=== PATIENT | female | born 1940 | race Caucasian/White ===

== ENCOUNTER 2018-04-21 11:05 | Observation (INO) ==
--- NOTE | 2018-04-21 11:18 | History & Physical Bridge Note ---
Date of Service April 21, 2018 History & Physical Bridge Note I have examined the patient, reviewed the History & Physical and in the interval since the performance of the History & Physical I have noted the following changes of clinical significance: pt was admitted to [facility] 2 days ago due to Acute Disastolic HF from AF with RVR; she has been successfully diuresed. She remains in AF with RVR. She was transferred today for the already scheduled BiV ppm and AVN ablation. Procedure and potential risks discussed with the patient's daughter since the patient has underlying dementia. Consents obtained from the patient's daughter
--- NOTE | 2018-04-21 11:19 | Pre Anesthesia Assessment ---
Date of Service April 21, 2018 Pre Sedation Assessment Cardiovascular + tachycardic Respiratory + respiratory effort normal Pre-Sedation Airway Assessment Smoking Status: Never smoker Hx Sleep Apnea: No Thyromental Distance: < 3.5 Finger Breadths Mallampati Class: II ASA: ASA3 Procedure Planning Contraindications for Sedation: none Current Medications Reviewed: Yes Notes The planned sedation has been discussed with the patient. Informed Consent was obtained. I have identified the patient, determined the appropriateness of sedation and have assessed the patient immediately prior to the procedure. All medicine(s) and interventions are by my order.
[2018-04-21] MEDS ORDERED: BACITRACIN INJ 50,000 UNIT VIAL ONE (11:43)
[2018-04-21] MEDS ORDERED: LIDOCAINE HCL 1% 20 ML VIAL ONE (11:43)
[2018-04-21] MEDS ORDERED: BUPIVACAINE 0.5 % 5 MG/1 ML PF 10ML VIAL ONE (11:43)
[2018-04-21] MEDS ORDERED: fentaNYL citrate 100 MCG/2 ML VIAL ONE ×3 (12:27→15:50)
[2018-04-21] MEDS ORDERED: MIDAZOLAM HCL 5 MG/ML 1 ML VIAL ONE ×2 (12:27→14:39)
[2018-04-21] MEDS ORDERED: methylPREDNISolone 125 MG/2 ML VIAL ONE (12:28)
[2018-04-21] MEDS ORDERED: WATER, STERILE FOR INJ 10 ML VIAL ONE (12:28)
[2018-04-21] MEDS ORDERED: CEFAZOLIN 250 MG/ML 1 GM VIAL ONE (12:28)
[2018-04-21] MEDS ORDERED: raNITIdine HCl 25 MG/ML VIAL ONE (12:28)
[2018-04-21] MEDS ORDERED: DiphenhydrAMINE HCL 50 MG/ML VIAL ONE (12:28)
[2018-04-21] MEDS ORDERED: ACETAMINOPHEN 325 MG TAB PO PRN (16:48)
--- NOTE | 2018-04-21 16:54 | Operative Report ---
Post Operative Report Pre & Post Diagnosis AF with RVR, CHF Operation Date: 04/21/18 12:00 <No data on this case meets the specified criteria> Procedure Operation Date: 04/21/18 12:00 Actual Procedures p Pacer with A/V Leads (Dual)(Left) - Leni Epstein DO s Lead LV (No Priopr Implant)(Not Applicable) - Leni Epstein DO p AV Node Ablation(Not Applicable) - Leni Epstein DO Surgeon Leni Epstein DO Barrel Inspector none Estimated Blood Loss 25 Findings Consistent with Post-Op Diagnosis Specimens none Description of Procedure see official report I attest to the content of the Intraoperative Record and any orders documented therein. Any exceptions are noted below.
--- NOTE | 2018-04-21 16:54 | Post Anesthesia Assessment ---
Date of Service April 21, 2018 Post Sedation Assessment Vital Signs Temp Pulse Resp BP Pulse Ox 04/21/18 11:17 36.6 C 78 16 103/68 99 Recovery Score Activity: Moves 4 extremities Respiration: Deep Breath/Cough Circulation: +/-20% PreAnes Value Consciousness: Fully Awake Oxygen Saturation: > 92% On Room Air Discharge Sedation Level of Care: Fast Track Phase II Post Sedation Plan On clinical assessment, the patient appears to have tolerated the sedation without complications. Patient is recovering as anticipated. Patient will continue to be monitored by nursing and may be discharged when sedation discharge criteria are met per below protocol. Upon Completions of procedure and additional 15 minutes continue every 5 minute vital signs and the P.A.R. score; then discharge to a Phase I or Fast Track to Phase II per the following guidelines: * Discharge Patient to appropriate Phase II area if PAR is 8 or greater or return to pre- procedure baseline. The post - procedure orders will be as directed. * If PAR score is less than 8 or not return to pre-procedure baseline then patient will follow Phase I monitoring till PAR is reached for Phase II. The Phase I may be done in procedure room or may call to secure a Phase I area. * If naloxone or flumazenil are used for reversal, hold in Phase I for continued monitoring from when last reversal dose was given for a minimum of 60 minutes or longer pending the nurse and/or physician discretion of patient condition before discharge to Phase II. Please call the Sedation Physician to re-evaluate and complete post-note for discharge to Phase II area. Do NOT discharge from procedure sedation or Phase 1 until post- sedation evaluation note is complete by procedure /sedation MD Sedation Discharge Instructions to be given to the patient at discharge to home.
--- NOTE | 2018-04-21 16:58 | Discharge Summary ---
Date of Service April 21, 2018 Admission HPI Pt admitted due to recurrent HF from AF with RVR despite high dose AVN blockers- to have an elective BiV ppm followed by AVN ablation Admission Exam Per Admitting Provider aaox3, NAD NC/AT, EOMI Supple No JVD irregular/irregular RVR S1/S2, No murmur CTA b/l no w/r/r soft nt/nd no LE edema b/l skin intact no focal deficits Principal Diagnosis Principal Diagnosis AF with RVR s/p BiV PPM and AVN ablation Discharge Exam aaox3, NAD NC/AT, EOMI Supple No JVD Nrl S1/S2, No murmur CTA b/l no w/r/r soft nt/nd no LE edema b/l skin intact no focal deficits left pectoral incision intact, no hematoma mild ecchymosis Discharge Data Allergies Allergy/AdvReac Type Severity Reaction Status Date / Time Iodine and Iodide Containing AdvReac Unknown Verified 04/21/18 11:31 Produc Procedures Performed Operation Date: 04/21/18 12:00 Actual Procedures p Pacer with A/V Leads (Dual)(Left) - Leni Epstein DO s Lead LV (No Priopr Implant)(Not Applicable) - Leni Epstein DO p AV Node Ablation(Not Applicable) - Leni Epstein DO Ordered Studies 04/21/18 07:45 EP Lab Images for PACS ONCE Hospital Course (1) Atrial fibrillation with rapid ventricular response: (2) Chronic combined systolic and diastolic congestive heart failure, NYHA class 3: (3) NICM (nonischemic cardiomyopathy): Total Time Total Time Spent Total Time Spent (In Minutes): 30 Total Time Includes: Examination of the Patient, Discharge Planning, Medication Reconciliation and Other Discharge Plan Discharge Items Patient Disposition: Home - Self-Care Reason For Visit: Atrial Fibrillation Discharge Diagnosis: af with rvr Condition: Good Discharge Goals: Improve function Activity: As commented below Activity Comment: do not lift the left elbow over the left shoulder for 1 month Lifting: No more than 10 pounds Lifting Comment: do not lift more than 10 pounds with the left arm for 2 weeks Bathing Comment: can shower thursday04/23/2018 Non-emergency contact: Legal Research Analyst Call non-emergency contact if: you have any medication questions Follow-up/Referrals: PCP,NO [Primary Care Provider] - Diet: Low Sodium (2gm) Addtl Provider Instructions: you should have a device and wound check in [place] next week and a f/u with either Dr. Epstein or Dav Blackburn in 1 month if you notice any swelling at the incision/pacemaker site call my office immediately Prescriptions: Continued multivitamin Tablet 1 tab PO DAILY RF: 0 furosemide [Lasix] 40 mg Tablet 40 mg PO DAILY RF: 0 alendronate [Fosamax] 70 mg Tablet 1 tab PO WK RF: 0 methimazole [Tapazole] 10 mg Tablet 10 mg PO DAILY RF: 0 loratadine [Claritin] 10 mg Tablet 10 mg PO DAILY RF: 0 Prilosec OTC 20 mg Tablet,Delayed Release (Dr/Ec) 20 mg PO BID RF: 0 Eliquis 5 mg Tablet 5 mg PO BID RF: 0 Discontinued metoprolol tartrate [Lopressor] 100 mg Tablet 100 mg PO BID RF: 0 digoxin 125 mcg Tablet 1 tab PO DAILY RF: 0 metoprolol tartrate 25 mg 1 tab PO BID RF: 0 Stand-Alone Forms: [facility] Discharge Orders: Discharge Order (Routine); Ordered 04/22/18 Ordered By: Leni Epstein Admission Data Admit Date/Time: 04/21/18 15:56 Attending Provider: Leni Epstein Admit Provider: Leni Epstein Primary Care Provider: HUSSAIN OHARA Service: Surgical Services
[2018-04-21] MEDS: ACETAMINOPHEN W/CODEINE #3 1 TAB PO PRN (17:58)
[2018-04-21 18:26] LABS: Hematocrit (blood only) 44.8 % (37-47); Hemoglobin 14.3 g/dL (12.0-16.0); Mean Corpuscular Volume 83.4 fL (80-100); Mean Platelet Volume 10.9 fL (7.4-10.4); Platelet Count 202 K/uL (130-400); RDW Coefficient of Variation 17.8 % (11.5-14.5); RDW Standard Deviation 54.7 fL (36.4-46.3); Red Blood Count 5.37 M/uL (4.2-5.4); White Blood Count 12.63 K/uL (4.8-10.8)
[2018-04-21 18:27] LABS: Mean Corpuscular Hgb Conc 31.9 g/dL (32-36)
[2018-04-21 18:42] LABS: Albumin Level 3.1 gm/dl (3.4-5.0); Bilirubin Direct 0.2 mg/dl (0-0.2); Creatinine Clr Calc Pharmacy 49.2 ml/min; Est GFR (Non-African American) 64.7
[2018-04-21 18:45] LABS: Bilirubin,Total 0.7 mg/dl (0.2-1)
[2018-04-21] MEDS: PANTOprazole 40 MG TAB PO SCH (21:49)
[2018-04-21] MEDS: APIXABAN 5 MG TABLET PO SCH (21:49)
[2018-04-22] MEDS: ACETAMINOPHEN W/CODEINE #3 1 TAB PO PRN (02:12)
--- NOTE | 2018-04-22 07:04 | XRay Report ---
XR chest 2V routine CLINICAL HISTORY: post implant COMPARISON STUDY: Chest radiograph July 28, 2008. FINDINGS: Interval placement of a left subclavian biventricular pacer is noted. Lead tips project ove r the right atrial appendage, right ventricle as well as a third lead which likely extends through th e coronary sinus. There is no pneumothorax. A moderate to large left pleural effusion is noted. There is a trace right pleural effusion. Left basilar opacity is noted. There is cardiomegaly without evid ence for pulmonary edema. Old right rib fracture is incidentally noted. IMPRESSION: 1. No pneumothorax following placement of a left subclavian biventricular pacer. 2. Moderate to large left pleural effusion with left basilar opacity. Trace right pleural effusion. 3. Cardiomegaly without evidence for pulmonary edema. Electronically signed by: Nito Zamora M.D. 04/22/2018 7:02 AM
[2018-04-22] MEDS: APIXABAN 5 MG TABLET PO SCH (08:39)
[2018-04-22] MEDS: PANTOprazole 40 MG TAB PO SCH (08:39)
[2018-04-22] MEDS ORDERED: INFLUENZA ADMINISTRATION CHARGE ONE (08:45)
[2018-04-22] MEDS ORDERED: PNEUMOCOCCAL ADMINISTRATION CHARGE ONE (08:45)
[2018-04-22] MEDS ORDERED: PNEUMOCOCCAL POLYSACCHARIDES 25 MCG/0.5 ML VIAL/SYR IM ONE (08:45)
[2018-04-22] MEDS ORDERED: INFLUENZA VACCINE HIGH DOSE 65+ 0.5 ML SYR IM ONE (08:45)
[2018-04-22] MEDS ORDERED: FUROSEMIDE 40 MG TAB PO SCH (09:00)
[2018-04-22] MEDS ORDERED: MULTIVITAMIN TAB PO SCH (09:00)
[2018-04-22] MEDS ORDERED: methIMAzole 5 MG TABLET PO SCH (09:00)
[2018-04-22] MEDS ORDERED: LORATADINE 10 MG TAB PO SCH (09:00)
--- NOTE | 2018-04-23 10:11 | Operative Report ---
Post Operative Report Pre & Post Diagnosis Operation Date: 04/21/18 12:00 <No data on this case meets the specified criteria> Procedure Operation Date: 04/21/18 12:00 Actual Procedures p Pacer with A/V Leads (Dual)(Left) - Leni Epstein DO s Lead LV (No Priopr Implant)(Not Applicable) - Leni Epstein, p AV Node Ablation(Not Applicable) - Leni Epstein DO s Venogram, Unilateral - Leni Epstein DO s Catheter Mapping - Leni Epstein DO Surgeon Leni Epstein, Tub Wash Operator none Estimated Blood Loss 25 I attest to the content of the Intraoperative Record and any orders documented therein. Any exceptions are noted below.
--- NOTE | 2018-04-23 22:51 | Operative Report ---
DATE OF OPERATION: 04/21/2018 PREOPERATIVE DIAGNOSES: [id number]-tu-[id number] diastolic and systolic heart failure [place] Heart Association class III, cardiomyopathy, atrial fibrillation persistent with rapid ventricular response despite AV anastasia blockers. POSTOPERATIVE DIAGNOSES: Same. PROCEDURE: A biventricular rate responsive permanent pacemaker, AV anastasia ablation, peripheral and coronary sinus venogram. SURGEON: Leni Epstein DO ASSISTANTS: None. ANESTHESIA: Monitored conscious sedation administered under my supervision by Lani Bowman, Start time 1242, end time 1621. Total of 8 mg of Versed and 225 mcg of fentanyl. INTRAVENOUS FLUIDS: 500 mL. ADDITIONAL MEDICATIONS: Due to possible contrast allergy 125 mg of Solu-Medrol, 25 mg of Benadryl and 50 mg of Zantac; contrast 70 mL; and antibiotics 1 gram of Ancef. BLOOD LOSS: Less than 25 mL. URINE OUTPUT: Not applicable. SPECIMENS: None. FINDINGS: See below. DRAINS: None. INDICATIONS: This is a 77-year-old female with a past medical history for persistent atrial fibrillation on high-dose AV anastasia block still with rapid ventricular response and continues to have [id number] systolic and diastolic heart failure, as well as cardiomyopathy. She was recently readmitted to [facility] due to acute heart failure, successfully diuresed and transferred to [facility] for biventricular pacemaker and AV anastasia ablation. CONSENT: Consent was obtained prior to the patient going into the electrophysiology lab. The patient was informed of the risks, benefits, and alternatives to the procedure, risks include but not limited to sudden cardiac , cardiac arrhythmia, cerebrovascular accident, myocardial infarction, injury to the blood vessels, chamber of the heart, lung, bleeding and infection. Due to the patient having some underlying dementia, the patient's daughter signed the consent and understood the procedure risk. DESCRIPTION OF PROCEDURE: The patient was brought into the electrophysiology lab in a fasting state. She was connected to continuous cardiac monitoring. A timeout was performed to ensure patient identity and procedure were correct. The patient was prepped and draped over the left infraclavicular space in normal surgical standard fashion. She received prophylactic antibiotics prior to incision and moderate conscious sedation was given throughout the procedure for patient's comfort level. A 10 mL of 1% lidocaine and bupivacaine mixture were given in the left deltopectoral groove. Incision was made in the left deltopectoral groove. Blunt dissection was performed down to identify the cephalic vein. Cephalic vein was isolated using 0 silk ties, then a peripheral venogram, we ended up actually having to do 3, was performed because I was having some difficulty getting axillary access; in fact actually at one point I think I was in the pleural cavity, but because she has a large left pleural effusion, I actually elba out 5 mL of pleural fluid. Ultimately, I was able to access the axillary vein through a needlestick without any complications and the guidewire was inserted without any resistance, and I went back to the cephalic vein and I nicked it with an 11 blade and a guidewire was inserted without any resistance. An 8-Cypriot sheath was inserted over the guidewire without any resistance. Dilator was removed and a second guidewire was inserted through the 8-Cypriot sheath to allow for retained venous access. Sheath was removed, flushed, dilator reinserted over it, and then it was reinserted along the guidewire. The guidewire and dilator removed. Right ventricular pacing lead was then advanced into right ventricle and positioned in the right ventricular apex under fluoroscopic guidance. There was adequate pacing and sensing thresholds and no diaphragmatic stimulation with high output pacing. The 8-Cypriot sheath was peeled away and lead was fixated to pectoralis muscle using 0 silk suture. A second 8-Cypriot sheath was inserted over the retained guidewire through the cephalic vein. The guidewire and dilator were removed. The right atrial pacing lead was then advanced into right atrium and positioned into right atrial appendage under fluoroscopic guidance. There was adequate pacing and sensing thresholds and no diaphragmatic stimulation with high output pacing. The 8-Cypriot sheath was peeled away and lead was fixated to pectoralis muscle using 0 silk suture. A pursestring with a 2-[address] needle was then placed around the cephalic vein as there was some backbleeding. Then we set up to the LV lead. A 9.5-Cypriot sheath was inserted over the guidewire in the axillary vein without any problems. The dilator and guidewire were removed. Then a MPX outer coronary sinus sheath from [employer] was advanced into the right atrium under fluoroscopic guidance over a guidewire. The guidewire and dilator were removed. Then the coronary sinus was cannulated using the EP diagnostic Decapolar catheter. The MPX guidewire with outer sheath was then advanced over the EP catheter. The EP catheter was removed and a balloon was inserted to perform a venogram of the coronary sinus. We did a few venograms of the coronary sinus in a few different views. She only had 1 small branch that was kind of going out into the posterolateral region. This was our only option. I was able to wire this with a Whisper wire and actually the outer sheath was actually advanced into it a little bit. I was able to advance the LV pacing lead over the Whisper wire without any problem. We did get acceptable, although not ideal pacing unipolar. The Whisper wire was removed. A stylet was placed inside through the LV lead and then the sheath was split under fluoroscopic guidance. Then the 9.5-Cypriot sheath was split and the LV lead was fixated to pectoralis muscle using 0 silk suture. A pacemaker pocket was created using blunt dissection over the pectoralis muscle. The pocket was then flushed with copious amounts of bacitracin saline wash and inspected for hemostasis. The pulse generator was then attached to the leads, making sure that the pins were in appropriate position, passed, set screws, and set screws were all tightened. The pulse generator was then placed in an antibiotic pouch and then placed in the pocket, making sure that the leads were lying flat beneath the device. The incision was then closed in a 3-layer fashion with 2-0 Vicryl interrupted suture followed by 3-0 Vicryl followed by a 4-0 Monocryl running stitch and Dermabond was applied followed by a pressure dressing. We then set up to perform the AV anastasia ablation. The patient was redraped in a sterile fashion over the bilateral groins. Then 10 mL of 1% lidocaine were given in the right femoral groin area. Then using modified Seldinger technique, venous access was obtained in the right femoral vein. An 8.5-Cypriot sheath was then inserted over the guidewire without any resistance. Then the ablation catheter was advanced up into the heart under fluoroscopic guidance and positioned in the His bundle region. We did measure an AH at 46 milliseconds. We then went on ablation at 70 kaur for a total of 3 times at about a minute each burn. Right away, we had a junctional escape in the 40s. The catheter I used was an 8 mm Biosense DF [employer]. I then pulled the catheter back under fluoroscopic guidance into the IVC and we did a 30-minute waiting period and she at that point remained paced without any escape. The catheter was then pulled and the sheath was pulled and manual compression was used to establish hemostasis. EQUIPMENT: 1. Pulse generator is a Medtronic Manisha Quad CRTP MRI SureScan [id number], serial #[id number]. 2. Right atrial lead, Medtronic 5076-45 cm, serial #[id number]. 3. Right ventricular lead, Medtronic 5076-52 cm, serial #[id number]. 4. Left ventricular lead, Medtronic 4598-78 cm, serial #[id number]. 5. The Tyrx pouch was reference number [id number], lot #[id number]. INTRAOPERATIVE TESTIN. Right atrial lead, Medtronic 5076-45 cm, serial #[id number]. 2. Right ventricular lead, Medtronic 5076-52 cm, serial #[id number]. 3. Left ventricular lead, Medtronic 4598-78 cm, serial #[id number]. INTRAOPERATIVE TESTIN. Right atrial lead, fib waves were 1.4 millivolts, impedance 634 ohms. 2. Right ventricular lead, R-wave 11.7 millivolts, impedance 975 ohms, threshold 1.1 volt at 1.4 milliamps. 3. Left ventricular lead, impedance 507 ohms, threshold 3.2 volts at 7.6 milliamps. FINAL MEASUREMENTS THROUGH THE DEVICE: 1. Right atrial lead, fib waves 1.9 millivolts, impedance 475 ohms. 2. Right ventricular lead, no R-waves as the patient is completely paced, impedance 703 ohms, threshold 0.5 volts at 0.4 milliseconds. 3. Left ventricular lead, impedance 532 ohms, threshold 3.5 volts at 1 millisecond. FINAL PARAMETERS: VVI 90. Right atrial amplitude 3.5 volts, pulse width 0.4 milliseconds, sensitivity off. Right ventricular amplitude 3.5 volts, pulse width 0.4 milliseconds, sensitivity 0.9 millivolts. Left ventricular amplitude 4.25 volts and pulse width 1 millisecond. IMPRESSION: Successful implantation of a biventricular rate responsive permanent pacemaker under fluoroscopic guidance along with peripheral and coronary sinus venogram as well as an AV anastasia ablation secondary to recurrent qyrbr-ki-nzqrtww systolic and diastolic heart failure, cardiomyopathy, and atrial fibrillation with rapid ventricular response despite AV anastasia block. PLAN: Monitor patient overnight, 12-lead ECG, chest x-ray. She can stop her metoprolol, her digoxin, and any other additional AV anastasia blockers. Continue her Eliquis and she should follow up in our device clinic in [place] in 1 week's time as well as a followup in 1 month's time with me or my PA. I attest to the content of the Intraoperative Record and any orders documented therein. Any exceptions are noted below. JYOTHI
== END 2018-04-22 16:45 | disposition home or self-care (01) ==
LOC: 2S 11:05 → ASU 11:05